=== PATIENT | male | born 1985 | race Caucasian/White ===

== ENCOUNTER 2018-10-19 17:11 | Emergency (ER) | payer OTHER ==
--- NOTE | 2018-10-19 18:07 | EDPHY ---
H & P Stated Complaint: lower back pain, chronic pain, hx of back sx Time Seen by Provider: 10/19/18 18:07 HPI/ROS: CHIEF COMPLAINT: Back pain HISTORY OF PRESENT ILLNESS: The patient presents to the ED with an acute exacerbation of chronic lumbar pain. The patient has a history of prior lumbar surgery. The patient has a nerve stimulator. The patient is under the care [facility]. Patient denies any acute bowel or bladder dysfunction. He denies any lower extremity complaints of weakness. He complains of severe pain in his mid lumbar region. 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 Patient denies using any recent narcotic medications. The patient denies fever. He denies additional acute medical complaints. REVIEW OF SYSTEMS: A comprehensive 10 point review of systems is otherwise negative aside from elements mentioned in the history of present illness. Source: Patient Exam Limitations: No limitations - Personal History Current Tetanus/Diphtheria Vaccine: Yes Current Tetanus Diphtheria and Acellular Pertussis (TDAP): Yes - Medical/Surgical History Hx Asthma: No Hx Chronic Respiratory Disease: No Hx Diabetes: No Hx Cardiac Disease: No Hx Renal Disease: No Hx Cirrhosis: No Hx Alcoholism: No Hx HIV/AIDS: No Hx Splenectomy or Spleen Trauma: No - Social History Smoking Status: Current every day smoker - Physical Exam Exam: General Appearance: Tearful, crying Eyes: Pupils equal and round no pallor or injection ENT, Mouth: Mucous membranes moist Respiratory: There are no retractions, lungs are clear to auscultation Cardiovascular: Regular rate and rhythm Gastrointestinal: Abdomen is soft and nontender, no masses, bowel sounds normal Neurological: 5/5 strength noted all 4 extremities, normal reflexes, no saddle anesthesia noted on exam Skin: Warm and dry, no rashes Musculoskeletal: Neck is supple nontender Extremities: symmetrical, full range of motion Constitutional: Initial Vital Signs Temperature (C) 36.8 C 10/19/18 17:15 Heart Rate 114 H 10/19/18 17:15 Respiratory Rate 18 10/19/18 17:15 Blood Pressure 128/103 H 10/19/18 17:15 O2 Sat (%) 98 10/19/18 17:15 O2 Delivery Mode Room Air Allergies/Adverse Reactions: No Known Allergies Allergy (Unverified 10/19/18 18:44) Home Medications: Medication Instructions Recorded Cyclobenzaprine [Flexeril 10 MG 10 mg PO TID PRN #15 tab 10/19/18 (*)] Lidocaine 5% [Lidoderm 5% Patch] 1 ea TD DAILY #12 patch 10/19/18 oxyCODONE/APAP 5/325 [Percocet 1 - 2 tab PO Q6-8PRN PRN #20 tab 10/19/18 5/325 (RX)] predniSONE [prednisone 20mg (RX)] 3 tab PO DAILY #15 tab 10/19/18 Medical Decision Making ED Course/Re-evaluation: Patient was treated with IV Toradol, Dilaudid and given a Flexeril pill. The patient is noted to be neurologically intact. The patient will be discharged home with a prescription for pain medications, steroids, lidocaine patches and muscle relaxants. Patient should contact his neurosurgeon to schedule a follow-up appointment. Patient is discharged home with customary aftercare instructions and return precautions. Differential Diagnosis: Differential diagnosis considered includes myofascial strain, lumbar DJD, sciatica - Data Points Medications Given: Discontinued Medications Cyclobenzaprine HCl (Flexeril) 10 mg PO EDNOW ONE Stop: 10/19/18 18:16 Last Admin: 10/19/18 18:38 Dose: 10 mg Hydromorphone HCl (Dilaudid) 1 mg IVP EDNOW ONE Stop: 10/19/18 18:16 Last Admin: 10/19/18 18:30 Dose: 1 mg Ketorolac Tromethamine (Toradol) 15 mg IVP EDNOW ONE Stop: 10/19/18 18:16 Last Admin: 10/19/18 18:30 Dose: 15 mg Departure - Departure Disposition: Home, Routine, Self-Care Clinical Impression: Lumbar pain Condition: Good Instructions: Acute Low Back Pain (ED) Additional Instructions: 1. Take Ibuprofen or Motrin 600 mg by mouth three times a day. 2. Flexeril as needed for muscle relaxation 3. Percocet as needed for pain 4. Lidocaine patches as needed for discomfort 5. Please contact [facility] to schedule a follow-up appointment recheck this week. Referrals: Dex Voss MD [Medical Doctor] - As per Instructions Prescriptions: Cyclobenzaprine [Flexeril 10 MG (*)] 10 mg PO TID PRN #15 tab PRN Reason: Spasms Lidocaine 5% [Lidoderm 5% Patch] 1 ea TD DAILY #12 patch oxyCODONE/APAP 5/325 [Percocet 5/325 (RX)] 1 - 2 tab PO Q6-8PRN PRN #20 tab PRN Reason: for pain predniSONE [prednisone 20mg (RX)] 3 tab PO DAILY #15 tab
[2018-10-19] MEDS ORDERED: KETOROLAC 15 MG/1 ML SDV IVP ONE (18:15)
[2018-10-19] MEDS ORDERED: CYCLOBENZAPRINE 10 MG TAB PO ONE (18:15)
[2018-10-19] MEDS ORDERED: HYDROmorphONE/DILAUDID 2 MG/ML INJ IVP ONE (18:15)
[2018-10-19] MEDS ORDERED: HYDROmorphONE/DILAUDID 1 MG/ML INJ ONE (18:21)
[2018-10-19 20:04] VITALS: BP 115/81
== END 2018-10-19 20:05 | disposition home or self-care (01) ==
DX: M54.5 Low back pain (principal)
CPT/HCPCS: 96374; J1170; J1885